=== PATIENT | male | born 1950 | race Caucasian/White ===

== ENCOUNTER 2020-03-27 00:09 | Outpatient (CLI) | payer MEDICARE, SELFPAY ==
[2020-03-27 18:53] LABS: SARS-CoV-2 RNA PCR Negative
== END 2020-03-27 00:10 | disposition home or self-care (01) ==
PROVIDERS: PCP Internal Medicine; Visit Provider Internal Medicine Gastroenterology
DX: Z01.812 Encounter for preprocedural laboratory examination (principal); Z11.59 Encounter for screening for other viral diseases
CPT/HCPCS: 87635; C9803; U0003

== ENCOUNTER 2020-03-29 00:29 | Day surgery (SDC) | payer MEDICARE, SELFPAY ==
[2020-03-21 14:10] VITALS: BMI 26.1
[2020-03-29] MEDS: LACTATED RINGERS 1,000 ML 150 ML IV CONT (06:33)
[2020-03-29 06:35] VITALS: BP 139/86; PULSE 51; RESP 16; TEMP 36.3; O2SAT 100
--- NOTE | 2020-03-29 07:00 | P.HP_ITS ---
History of Present Illness History of Present Illness Consent: Risks, benefits, and alternatives have been discussed and questions answered. Patient agrees to proceed with procedure. Chief complaint: Hx Colon Polyps Narrative: Atul Koo is a 69 year old male WITH HISTORY OF POLYPS HERE FOR COLON CANCER SCREENING [facility] Family History Family History Mother Hypertension Father Malignant neoplasm of prostate Social History Social History Smoking status: Former smoker Second hand tobacco smoke exposure: No Alcohol intake: current Gender identity (if verbalized by the patient): Male Meds Home Medications and Allergies Home Medications Medication Instructions Recorded Confirmed Type aspirin 81 mg tablet,delayed 81 mg PO DAILY 09/22/19 03/29/20 History release lisinopril 40 mg tablet 40 mg PO DAILY #90 tablet 01/04/20 03/29/20 Rx atorvastatin 40 mg PO HS 03/21/20 03/29/20 History cholecalciferol (vitamin D3) 50 mcg PO DAILY 03/21/20 03/29/20 History coenzyme Q10 [Co Q-10] 200 mg PO DAILY 03/21/20 03/29/20 History omega 7-ukm-pdo-fish oil [Fish Oil] 1 cap PO DAILY 03/21/20 03/29/20 History Allergies Allergy/AdvReac Type Severity Reaction Status Date / Time No Known Allergies Allergy Verified 03/29/20 06:23 Vital Signs Vital Signs - 24 hr 03/29/20 06:35 Temperature 36.3 C L Pulse Rate 51 L Respiratory Rate 16 Blood Pressure 139/86 Pulse Oximetry 100 Exam Resp: Auscultation: clear to auscultation bilaterally Cardio: Rate: regular rate Rhythm: regular rhythm GI: GI Palp: Yes Soft to palpation and No Tenderness to palpation present (GI) Assessment and Plan Assessment and plan (1) Colon cancer screening: Code(s): Z12.11 - Encounter for screening for malignant neoplasm of colon Status: Acute Assessment and Plan: Colonoscopy with possible biopsy or polypectomy or cautery or injection of substances.
--- NOTE | 2020-03-29 07:03 | WPDANESEPPF ---
Anes - Initial Pre Proc Eval Procedure: Operation Date: 03/29/20 07:30 Proposed Procedures p Screening Colonoscopy - Lei Alex MD Date/Time: 03/29/20 07:03 Surgeon: Lei Alex MD Pre Op Diagnosis: Hx Colon Polyps Patient Data Age: 69 Gender: M Height: 5 ft 4 in Weight: 67.3 kg Last Vital Signs Temp 97.3 F L 03/29/20 06:35 Pulse 51 L 03/29/20 06:35 Resp 16 03/29/20 06:35 BP 139/86 03/29/20 06:35 Pulse Ox 100 03/29/20 06:35 Allergies Allergy/AdvReac Type Severity Reaction Status Date / Time No Known Allergies Allergy Verified 03/29/20 06:23 Home Medications Medication Instructions Recorded Confirmed Type aspirin 81 mg tablet,delayed 81 mg PO DAILY 09/22/19 03/29/20 History release lisinopril 40 mg tablet 40 mg PO DAILY #90 tablet 01/04/20 03/29/20 Rx atorvastatin 40 mg PO HS 03/21/20 03/29/20 History cholecalciferol (vitamin D3) 50 mcg PO DAILY 03/21/20 03/29/20 History coenzyme Q10 [Co Q-10] 200 mg PO DAILY 03/21/20 03/29/20 History omega 3-qeu-abq-fish oil [Fish Oil] 1 cap PO DAILY 03/21/20 03/29/20 History Patient hx anesthesia problems: none Family hx anesthesia problems: none PMFSH Past Medical History Medical History (Updated 03/29/20 @ 07:03 by Atul Templeton MD) Dyslipidemia, goal LDL below 100 Essential (primary) hypertension Family History Family History Mother Hypertension Father Malignant neoplasm of prostate Social History Social History Smoking status: Former smoker Second hand tobacco smoke exposure: No Alcohol intake: current Gender identity (if verbalized by the patient): Male Anes - Eval Final PreProcedure Day of Procedure 03/29/20 07:03 Patient weight: normal Heart: regular rate and rhythm Lungs: clear to auscultation Airway: Mallampati scale class II Neurological: alert and oriented Last oral intake: >/= 8 hours ASA classification: II Emergent: no Anesthetic plan: proceed Anesthesia type and monitoring: general GIVS and standard monitoring Informed Consent: The patient's anesthetic plan and its attendant risks and benefits were discussed with the patient/family/POA. Questions were solicited and answers provided to the satisfaction of the patient/family/POA.
[2020-03-29] MEDS: SIMETHICONE ORAL SUSPENSION 20 MG/0.3 ML 30 ML BOTTLE 0.6 ML IRRIGATION (07:35)
[2020-03-29 07:48] VITALS: BP 80/59; PULSE 72; RESP 22; O2SAT 98
[2020-03-29 07:58] VITALS: BP 98/55; PULSE 53; RESP 20; O2SAT 99
[2020-03-29 08:08] VITALS: BP 112/64; PULSE 52; RESP 14; O2SAT 99
== END 2020-03-29 08:25 | disposition home or self-care (01) ==
PROVIDERS: PCP Internal Medicine; Visit Provider Internal Medicine Gastroenterology
PROC: 0DJD8ZZ Inspection of Lower Intestinal Tract, Via Natural or Artificial Opening Endoscopic (ICD-10-PCS; CPT 45378; principal; 2020-03-29 07:30)
DX: Z12.11 Encounter for screening for malignant neoplasm of colon (principal); Z86.010 Personal history of colon polyps; I10 Essential (primary) hypertension; E78.5 Hyperlipidemia, unspecified; Z79.82 Long term (current) use of aspirin; Z87.891 Personal history of nicotine dependence
CPT/HCPCS: G0105; J2704; J7120